=== PATIENT | male | born 1980 | race Caucasian/White ===

== ENCOUNTER 2020-10-31 22:08 | Emergency (ER) | payer OTHER ==
[~2020-10-31] VITALS: Ht 172.7 cm; Wt 89.8 kg
[2020-11-01] MEDS ORDERED: MEDROL8 MG PO (02:24)
[2020-11-01] MEDS ORDERED: ZYRTEC10 M2 PO (02:24)
== END 2020-11-01 02:37 ==
LOC: ER 22:08
DX: R21 Rash and other nonspecific skin eruption (principal); T46.6X5A Adverse effect of antihyperlipidemic and antiarteriosclerotic drugs, initial encounter; Y92.019 Unspecified place in single-family (private) house as the place of occurrence of the external cause

== ENCOUNTER 2021-02-08 01:32 | Outpatient (CLI) | payer OTHER ==
[~2021-02-08 01:32] MED LIST: MEDROL8 MG PO; ZYRTEC10 M2 PO
== END 2021-02-08 15:00 | disposition home or self-care (01) ==
LOC: LAB 01:32
PROVIDERS: ATTEND Obstetrics & Gynecology
DX: Z20.818 Contact with and (suspected) exposure to other bacterial communicable diseases (principal); Z20.828 Contact with and (suspected) exposure to other viral communicable diseases

== ENCOUNTER 2021-08-14 20:15 | Emergency (ER) | payer OTHER ==
[~2021-08-14] VITALS: Ht 172.7 cm; Wt 90.7 kg
[2021-08-14] MEDS ORDERED: MEDROLPACK PO (23:57)
[2021-08-14] MEDS ORDERED: ZITHROMAX TRI-500 MG PO (23:57)
[2021-08-14] MEDS ORDERED: FLONASE16 GM NASAL (23:59)
== END 2021-08-15 00:24 | disposition home or self-care (01) ==
LOC: ER 20:15
DX: J06.9 Acute upper respiratory infection, unspecified (principal); Z88.8 Allergy status to other drugs, medicaments and biological substances; Z20.822 Contact with and (suspected) exposure to COVID-19